=== PATIENT | female | born 1980 | race Caucasian/White ===

== ENCOUNTER 2017-03-25 16:10 | Emergency (ER) | payer MEDICAID, OTHER ==
[~2017-03-25] VITALS: Ht 162.6 cm; Wt 69.0 kg
[2017-03-25 16:38] VITALS: Ht 162.6 cm; Wt 69.0 kg
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
[2017-03-25] MEDS ORDERED: IBUPROFEN 600 MG TAB PO ONE (17:30)
[2017-03-25] MEDS ORDERED: IBUP-1542 PO (17:34)
--- NOTE | 2017-03-25 18:34 | RADRPT ---
PROCEDURE: Chest x-ray CLINICAL INDICATION: Trauma with chest pain TECHNIQUE: Chest single view COMPARISON: None FINDINGS: The heart is normal in size. The pulmonary vessels are normal in caliber. The lungs are clear. The re is calcified granuloma left upper lobe. The costophrenic angles are sharp. The visualized bony t horax is unremarkable. IMPRESSION: No acute cardiopulmonary disease. Old granulomatous disease No evidence of pneumothorax RPTAT: HH .Oz Huber MD, Date Time Electronically viewed and signed by .Oz Huber MD, on 03/25/2017 18:34 .W/
--- NOTE | 2017-03-25 18:35 | RADRPT ---
PROCEDURE: XR Cervical Spine. CLINICAL INDICATION: Neck pain TECHNIQUE: AP, lateral and odontoid views of the cervical spine were performed. The images were re viewed on a PACS workstation. COMPARISON: None. FINDINGS: Cervical spine is visualized to the level of C7-T1. No displaced fracture is identified. The align ment of the cervical spine is anatomic. Vertebral body heights and disk spaces are well maintained. Facets are normally aligned. The lateral masses are symmetric. The prevertebral soft tissues are u nremarkable. IMPRESSION: 1. No acute fracture dislocation. 2. No significant degenerate change. RPTAT: HH .Oz Huber MD, Date Time Electronically viewed and signed by .Oz Huber MD, on 03/25/2017 18:35 .W/
== END 2017-03-25 19:08 | disposition home or self-care (01) ==
LOC: FTE 16:10
DX: S13.4XXA Sprain of ligaments of cervical spine, initial encounter (principal); V43.52XA Car driver injured in collision with other type car in traffic accident, initial encounter
CPT/HCPCS: 71010; 72040; Z7610